=== PATIENT | male | born 1960 | race Caucasian/White ===

== ENCOUNTER 2024-01-27 14:33 | Outpatient (CLI) | payer OTHER ==
[~2024-01-27 14:33] MED LIST: PENI500T2 PO
== END 2024-01-27 23:59 | disposition home or self-care (01) ==
LOC: MRI 14:33
PROVIDERS: ATTEND Orthopaedic Surgery
DX: M16.52 Unilateral post-traumatic osteoarthritis, left hip (principal); M25.852 Other specified joint disorders, left hip
CPT/HCPCS: 73721